=== PATIENT | female | born 1985 | race Caucasian/White ===

== ENCOUNTER 2016-09-05 20:16 | Emergency (ER) | payer OTHER ==
[~2016-09-05] VITALS: Ht 152.4 cm; Wt 78.5 kg
[2016-09-05 20:16] VITALS: BP_SYST 134
[2016-09-05 21:03] LABS: BILIRUBIN,URINE NEGATIVE (NEGATIVE); BLOOD, URINE 2+ (NEGATIVE); CLARITY/URINE HAZY (CLEAR); COLOR,URINE YELLOW (YELLOW); GLUCOSE,URINE NEGATIVE (NEGATIVE); KETONES,URINE NEGATIVE (NEGATIVE); LEUKOCYTE ESTERASE ,URINE 2+ (NEGATIVE); NITRITE, URINE POSITIVE (NEGATIVE); PH,URINE 5.5 (5.0-8.0); PROTEIN URINE TRACE (NEGATIVE)
[2016-09-05 21:05] LABS: RBC,URINE NONE SEEN /HPF (0-3); WBC,URINE 20-50 /HPF (0-3)
[2016-09-05 21:06] LABS: BACTERIA,URINE MODERATE /HPF (None Seen); MUCUS,URINE None Seen /LPF (None Seen)
[2016-09-05] MEDS ORDERED: ONDANSETRON 4 MG ODT TAB PO ONE (21:30)
[2016-09-05] MEDS ORDERED: ACETAMINOPHEN 500 MG TABLET PO ONE (21:30)
[2016-09-05] MEDS ORDERED: LEVOFLOXACIN 500 MG TABLET PO ONE (21:30)
[2016-09-05 21:40] VITALS: BP_SYST 127
== END 2016-09-05 21:40 | disposition home or self-care (01) ==
LOC: SED 20:16
DX: N39.0 Urinary tract infection, site not specified (principal); R03.0 Elevated blood-pressure reading, without diagnosis of hypertension
CPT/HCPCS: 81000; 81025; 87086; 99284; Q0162

== ENCOUNTER 2017-03-23 12:34 | Emergency (ER) | payer OTHER ==
[~2017-03-23] VITALS: Ht 160 cm; Wt 74.8 kg
[2017-03-23 12:41] VITALS: BP_SYST 121
--- NOTE | 2017-03-23 12:52 | NUR ---
Patient to ER bed 5 to gown for evaluation. Side rails up. Report given to Scot LYNCH.
[2017-03-23 12:58] LABS: BILIRUBIN,URINE NEGATIVE (NEGATIVE); BLOOD, URINE NEGATIVE (NEGATIVE); CLARITY/URINE SL HAZY (CLEAR); COLOR,URINE YELLOW (YELLOW); GLUCOSE,URINE NEGATIVE (NEGATIVE); KETONES,URINE NEGATIVE (NEGATIVE); LEUKOCYTE ESTERASE ,URINE 2+ (NEGATIVE); NITRITE, URINE NEGATIVE (NEGATIVE); PROTEIN URINE NEGATIVE (NEGATIVE); UROBILINOGEN,URINE 0.2 (0.2-1.0)
--- NOTE | 2017-03-23 12:58 | NUR ---
Assumed care of patient introduced self here for painful urination and upper back pain x 3 days, denies blood in urine, urine obtain and sent to lab.
--- NOTE | 2017-03-23 13:00 | NUR ---
Yana DAI at bedside.
[2017-03-23 13:24] LABS: BACTERIA,URINE MODERATE /HPF (None Seen); RBC,URINE 0-3 /HPF (0-3)
[2017-03-23 13:25] LABS: MUCUS,URINE 1+ /LPF (None Seen)
[2017-03-23] MEDS ORDERED: PHENAZOPYRIDINE HCL 100 MG TABLET PO ONE (13:30)
[2017-03-23] MEDS ORDERED: IBUPROFEN 800 MG TABLET PO ONE (13:30)
[2017-03-23] MEDS ORDERED: NITROFURANTOIN MONOHYD/M-CRYST 100 MG CAPSULE PO ONE (13:30)
--- NOTE | 2017-03-23 13:42 | NUR ---
Patient given written and verbal discharge instructions and verbalizes understanding. ER MD discussed with patient the results and treatment provided. Patient in stable condition. ID arm band removed. Rx of Pyridium, Motrin, Macrobid given. Patient educated on pain management and to follow up with PMD. Pain Scale 0/10. Opportunity for questions provided and answered.
== END 2017-03-23 13:42 | disposition home or self-care (01) ==
LOC: SED 12:34
DX: N39.0 Urinary tract infection, site not specified (principal); R03.0 Elevated blood-pressure reading, without diagnosis of hypertension
CPT/HCPCS: 81000-TC; 81025; 87086; 87186-TC; 99284

== ENCOUNTER 2017-08-30 18:13 | Emergency (ER) | payer OTHER ==
[~2017-08-30] VITALS: Ht 160 cm; Wt 81.6 kg
[2017-08-30 18:19] VITALS: BP_SYST 107
[2017-08-30 19:55] LABS: BILIRUBIN,URINE NEGATIVE (NEGATIVE); BLOOD, URINE NEGATIVE (NEGATIVE); CLARITY/URINE SL HAZY (CLEAR); COLOR,URINE YELLOW (YELLOW); GLUCOSE,URINE NEGATIVE (NEGATIVE); KETONES,URINE TRACE (NEGATIVE); LEUKOCYTE ESTERASE ,URINE NEGATIVE (NEGATIVE); NITRITE, URINE NEGATIVE (NEGATIVE); PROTEIN URINE NEGATIVE (NEGATIVE); UROBILINOGEN,URINE 0.2 (0.2-1.0)
[2017-08-30] MEDS ORDERED: NACL 0.9% 1,000 ML IV ONE (20:15)
[2017-08-30] MEDS ORDERED: ONDANSETRON HCL 4 MG/2 ML VIAL IVP ONE (20:15)
[2017-08-30] MEDS ORDERED: KETOROLAC TROMETHAMINE 30 MG VIAL IVP ONE (20:15)
[2017-08-30 20:23] LABS: BACTERIA,URINE MODERATE /HPF (None Seen); RBC,URINE 0-3 /HPF (0-3); WBC,URINE 0-3 /HPF (0-3)
[2017-08-30 20:24] LABS: MUCUS,URINE 1+ /LPF (None Seen)
[2017-08-30 20:28] LABS: BASOPHILS % (AUTO) 0.6 % (0.0-2.0); EOSINOPHILS # (AUTO) 0.1 K/uL (0.0-0.4); EOSINOPHILS % (AUTO) 2.4 % (0.0-4.0); HEMATOCRIT 41.3 % (36-48); HEMOGLOBIN 14.1 g/dL (12.0-16.0); LYMPHOCYTES # (AUTO) 1.4 K/uL (1.0-5.5); LYMPHOCYTES % (AUTO) 28.5 % (20.5-51.5); MEAN CORPUSCULAR HEMOGLOBIN 31 pg (27-31); MEAN CORPUSCULAR HGB CONC 34 % (32-36); MEAN CORPUSCULAR VOLUME 90 fL (79.0-98.0); MONOCYTES # (AUTO) 0.7 K/uL (0.0-1.0); NEUTROPHILS # (AUTO) 2.7 K/uL (1.8-7.7); NEUTROPHILS % (AUTO) 54.5 % (40.0-70.0); PLATELET COUNT (AUTO) 288 K/uL (130-430); RED BLOOD CELL COUNT(AUTO) 4.58 MIL/uL (4.2-6.2); RED CELL DISTRIBUTION WIDTH 11.6 % (9.0-15.0); WHITE BLOOD COUNT (AUTO) 4.9 K/uL (4.8-10.8)
[2017-08-30 20:38] LABS: CALCIUM 9.1 mg/dL (8.4-11.0); CREATININE 0.79 mg/dL (0.55-1.30); POTASSIUM 3.2 mmol/L (3.5-5.1)
[2017-08-30 20:43] LABS: ALBUMIN 3.6 g/dL (3.4-4.8); TOTAL BILIRUBIN 0.5 mg/dL (0.0-1.0)
[2017-08-30 21:18] VITALS: BP_SYST 112
== END 2017-08-30 21:18 | disposition home or self-care (01) ==
LOC: SED 18:13
DX: K52.9 Noninfective gastroenteritis and colitis, unspecified (principal); E87.6 Hypokalemia
CPT/HCPCS: 36415; 74021; 80053; 81000; 83690; 85025; 96361; 96374; 96375; 99285; J1885; J2405; J7030

== ENCOUNTER 2018-11-03 15:09 | Emergency (ER) | payer OTHER ==
[~2018-11-03] VITALS: Ht 160 cm; Wt 80.7 kg
--- NOTE | 2018-11-03 15:40 | NUR ---
Wilson gage in ED - 11/03/18 at 1558 by MILAGRO IRVING Mejía at bedside examining patient.
--- NOTE | 2018-11-03 15:44 | NUR ---
Patient to ER bed 04 to gown for evaluation. Side rails up.
[2018-11-03] MEDS ORDERED: ALBUTEROL SULFATE 0.083% 2.5 MG/3 ML VIAL.NEB INH ONE (15:45)
--- NOTE | 2018-11-03 15:50 | NUR ---
ER Dr. Mejía at bedside examining patient.
--- NOTE | 2018-11-03 15:54 | NUR ---
RT at bedside for treatment
--- NOTE | 2018-11-03 15:55 | NUR ---
Patient is awake, alert, and oriented x4. Patient reports feeling short of breath 45 minutes ago, took her son's inhaler and felt no relief. Patient reports feeling dizzy right now. Denies pain, nausea, and vomiting.
[2018-11-03] MEDS ORDERED: IPRATROPIUM/ALBUTEROL SULFATE 3 ML AMPUL.NEB (DUONEB) ONE (15:57)
[2018-11-03] MEDS ORDERED: methylPREDNISolone SOD SUCC/PF 62.5 MG/ML VIAL IM ONE (17:00)
--- NOTE | 2018-11-03 17:29 | NUR ---
Patient given written and verbal discharge instructions and verbalizes understanding. ER MD discussed with patient the results and treatment provided. Patient in stable condition. ID arm band removed. No Rx given. Patient educated on pain management and to follow up with PMD. Pain Scale 0/10. Opportunity for questions provided and answered. Medication side effect fact sheet provided.
== END 2018-11-03 17:28 | disposition home or self-care (01) ==
LOC: SED 15:09
DX: T78.40XA Allergy, unspecified, initial encounter (principal); X58.XXXA Exposure to other specified factors, initial encounter
CPT/HCPCS: 71045; 81025; 94640; 96372; 99283; J2930; J7613; J7620

== ENCOUNTER 2021-02-05 15:42 | Emergency (ER) | payer OTHER ==
[~2021-02-05] VITALS: Ht 160 cm; Wt 85.7 kg
[2021-02-05 15:45] VITALS: BP_SYST 156
--- NOTE | 2021-02-05 15:45 | NUR ---
Patient triaged and placed in waiting room. VSS and patient appears in no acute distress at this time. Accompanied by SELF, awaiting available bed, and MD notified of need for MSE.
--- NOTE | 2021-02-05 16:05 | NUR ---
PT STATES PAIN TO RIGHT EAR, POSSIBLE FOREIGN BODY. STATES SHE HAS TAKEN ABX TWICE AND STILL NOT BETTER.
--- NOTE | 2021-02-05 16:30 | NUR ---
DR CHACON OUT TO TRIAGE PT IN TRIAGE ROOM
[2021-02-05] MEDS ORDERED: IBUP-1969 PO (16:33)
[2021-02-05] MEDS ORDERED: CORTEARS RIGHT EAR (16:33)
[2021-02-05 16:57] VITALS: BP_SYST 156
--- NOTE | 2021-02-05 16:59 | NUR ---
Patient given written and verbal discharge instructions and verbalizes understanding. ER MD discussed with patient the results and treatment provided. Patient in stable condition. ID arm band removed. Rx of Cortisporin and Ibuprofen given. Patient educated on pain management and to follow up with PMD. Pain Scale 2/10. Opportunity for questions provided and answered. Medication side effect fact sheet provided.
== END 2021-02-05 16:59 | disposition home or self-care (01) ==
LOC: SED 15:42
DX: H72.91 Unspecified perforation of tympanic membrane, right ear (principal); Z79.899 Other long term (current) drug therapy
CPT/HCPCS: 99283